=== PATIENT | female | born 1960 | race Caucasian/White ===

== ENCOUNTER 2017-08-30 20:16 | Emergency (ER) | payer BC ==
[2017-08-30 20:19] VITALS: BP 151/102
[2017-08-30] MEDS ORDERED: methylPREDNISolone Acetate 80 MG/ML SDV IM ONE (20:35)
[2017-08-30] MEDS ORDERED: Lidocaine 1% 20 ML MDV INJECT ONE (20:35)
[2017-08-30] MEDS ORDERED: cefTRIAXone 1 GM Vial IM ONE (20:35)
--- NOTE | 2017-08-30 20:45 | EDM.PDOC ---
ED HPI GENERAL MEDICAL PROBLEM - General Chief Complaint: General Stated Complaint: cough, sore throat Time Seen by Provider: 08/30/17 20:30 Source of Information: Reports: Patient History Limitations: Reports: No Limitations - History of Present Illness INITIAL COMMENTS - FREE TEXT/NARRATIVE: Patient presents today with complaints of chest tightness, cough and not feeling well. Started on Thursday with a sore throat. Symptoms have progressed. Patient feels as though she can't inspire deeply to get enough air in. She has a tight cough, nonproductive. Occasional wheezing. Mild sinus congestion. does have ear pain that worsens with cough. No fevers that she is aware of. Blood pressure is high on arrival but patient states that it does go up with doctor visits but checks frequently otherwise and it is always good. Onset: Gradual Duration: Day(s): Location: Reports: Chest Quality: Reports: Burning Severity: Moderate Associated Symptoms: Reports: Cough, Shortness of Breath, Weakness. Denies: cough w sputum, Fever/Chills Upper Back Pain Score (Numeric/FACES): 4 - Related Data Allergies Allergy/AdvReac Type Severity Reaction Status Date / Time adhesive tape Allergy Rash Verified 08/30/17 20:19 acetaminophen [From [place]] AdvReac Mild Nausea and Verified 08/30/17 20:19 Vomiting hydrocodone [From [place]] AdvReac Mild Nausea and Verified 08/30/17 20:19 Vomiting Home Meds: Home Meds Aspirin [Children's Aspirin] 81 mg PO DAILY 03/05/15 [History] Cholecalciferol (Vitamin D3) [D3 Dots] 400 intnl unit PO DAILY 03/05/15 [History ] Cranberry Extract/Vit C [Azo Cranberry Softgel] 1 mg PO DAILY 03/05/15 [History] Dietary Supplement [Scandishake] 1 each PO DAILY 03/05/15 [History] Fish,Saf,Flx,Brg Oils/O3,6,9#2 [Qfmg-Dopu-Esxuxv Oil Softgel] 1 each PO DAILY [History] Lutein 6 mg PO DAILY 03/05/15 [History] Past Medical History Genitourinary History: Reports: Renal Calculus - Past Surgical History HEENT Surgical History: Reports: Tonsillectomy GI Surgical History: Reports: Appendectomy Female Surgical History: Reports: D&C, Endometrial Ablation, Lithotripsy/ESWL Social & Family History - Tobacco Use Smoking Status *Q: Never Smoker - Caffeine Use Caffeine Use: Reports: None - Recreational Drug Use Recreational Drug Use: No Drug Use in Last 12 Months: No ED ROS GENERAL - Review of Systems Review Of Systems: See Below Constitutional: Reports: Chills, Malaise, Weakness. Denies: Fever, Decreased Appetite HEENT: Reports: Ear Pain, Rhinitis, Throat Pain. Denies: Sinus Problem Respiratory: Reports: Shortness of Breath, Wheezing, Cough Cardiovascular: Denies: Chest Pain, Edema, Lightheadedness Endocrine: Reports: Fatigue GI/Abdominal: Denies: Abdominal Pain, Nausea, Vomiting : Reports: No Symptoms Musculoskeletal: Reports: No Symptoms Skin: Reports: No Symptoms Neurological: Reports: No Symptoms Psychiatric: Reports: No Symptoms ED EXAM, GENERAL - Physical Exam Exam: See Below Exam Limited By: No Limitations General Appearance: Alert, WD/WN, No Apparent Distress Ears: Normal External Exam, Normal TMs Nose: Normal Inspection, Normal Mucosa, No Blood Throat/Mouth: Normal Inspection, Normal Oropharynx Head: Normocephalic Neck: Normal Inspection, Supple, Non-Tender Respiratory/Chest: No Respiratory Distress, Decreased Breath Sounds, Wheezing ( expiratory) Cardiovascular: Regular Rate, Rhythm GI/Abdominal: Normal Bowel Sounds, Soft, Non-Tender Back Exam: Normal Inspection Extremities: Normal Range of Motion Neurological: Alert, Oriented Psychiatric: Normal Affect, Normal Mood Skin Exam: Warm, Dry Course - Vital Signs Last Recorded V/S: Last Vital Signs Temp 98.1 F 08/30/17 20:17 Pulse 86 08/30/17 20:17 Resp 20 08/30/17 20:17 BP 151/102 H 08/30/17 20:17 Pulse Ox 98 08/30/17 20:17 Departure - Departure Time of Disposition: 20:49 Disposition: Home, Self-Care 01 Condition: Good Clinical Impression: Acute bronchitis - Discharge Information Referrals: PCP,None [Primary Care Provider] - Additional Instructions: 1. Push fluids 2. Tylenol or ibuprofen for fever or discomfort 3. Ceftin 250 mg twice a day for 10 days 4. Follow up if any ongoing concerns.
== END 2017-08-30 20:58 | disposition home or self-care (01) ==
LOC: CC.ED 20:16
DX: J20.9 Acute bronchitis, unspecified (principal); Z88.6 Allergy status to analgesic agent; Z91.09 Other allergy status, other than to drugs and biological substances
CPT/HCPCS: 96372; 99283; J0696; J1040